=== PATIENT | female | born 2000 | race Caucasian/White ===

== ENCOUNTER 2024-05-27 19:07 | Emergency (ER) | payer MEDICAID, SELFPAY ==
[2024-05-27 19:33] VITALS: BP 122/86; PULSE 78; RESP 18; TEMP 36.7; O2SAT 96
--- NOTE | 2024-05-27 20:36 | EDNOTE_ITS ---
Upper Extremity Injury RME/HPI General Chief Complaint: Hand/Wrist Problems Stated Complaint: RIGHT HAND LAC Time Seen by Provider: 05/27/24 20:05 Arrival date/time: 05/27/24 19:07 RME / HPI RME / HPI narrative: 23-year-old female patient came in for evaluation regarding hand laceration, palmar aspect, after patient smashed the coffee cup due to anger. Patient sustained 4 cm gaping laceration to the hand, thenar aspect, severity moderate. Patient is able to bend and extend the fingers without any limitation, denies any numbness or paresthesias to the fingers and hand. Related Data Previous Rx's ?Medication ?Instructions ?Recorded cephalexin 500 mg capsule 500 mg PO TID 7 days #21 caps 05/27/24 ibuprofen 800 mg tablet 800 mg PO TID PRN pain #20 tabs 05/27/24 Review of Systems Review of Systems Narrative Review of Systems: Review of system reviewed and within normal limits except mentioned in HPI ED Exam Narrative Physical exam: VITAL SIGNS: Reviewed. GENERAL APPEARANCE: Alert and interactive, follows commands, no acute distress, HEAD AND FACE: Non-traumatic. ENT: PERRL, pink conjunctivitis, eyelid no trauma, Mucous membrane moist. NECK: Supple, nontender, no nuchal rigidity. RECTAL: Deferred. GENITAL: Deferred. NEUROLOGICAL: Gross motor function intact sensory function intact, Appropriate for age. MUSCULOSKELETAL: low back nontender, full range of motion. EXTREMITIES: + 4 cm gaping laceration, right hand, palmar aspect, full range of motion. Of the fingers and wrist, sensation intact all fingers and none SKIN: Color pink, dry, no rash, no lacerations, no abrasions, no contusions. LYMPHATICS: Deferred. Course Quality Measures none Orders Category Date Time Status Ibuprofen Tab [Motrin Tab] Med 05/27/24 20:35 Once 800 mg PO X1 ONE Tet,Diphth,Pertuss(Acell)-Tdap [Boostrix Vacc] Med 05/27/24 20:35 Once 0.5 ml IMI .ONCE ONE cephALEXin [Keflex] Med 05/27/24 20:35 Once 500 mg PO X1 ONE Vital Signs Vital signs: Vital Signs Temperature 98.0 F 05/27/24 19:33 Pulse Rate 78 05/27/24 19:33 Respiratory Rate 18 05/27/24 19:33 Blood Pressure 122/86 H 05/27/24 19:33 Pulse Oximetry (%) 96 05/27/24 19:33 Oxygen Delivery Method Room Air 05/27/24 19:33 Procedures -ED Laceration Laceration 1: Site: hand Side (If applicable): right Size (cm): 4 Description: flap Depth: simple, single layer Local Anesthetic: lidocaine 1% Amount of anesthesia used (mL): 10 Pre-repair: wound explored, irrigated extensively and wound margins revised (All foreign body removed) Skin layer closed with: nylon Size (cm): 4-0 Number of sutures: 5 Technique: simple, interrupted Extremity Injury MDM Narrative MDM Narrative:: Repair and suturing was done by me see procedure notes. Patient received Boostrix, Keflex, Motrin wound clearance with NS, and careful removal of foreign body done by me. Patient data External records reviewed:: None Clinical information provided by:: patient and family Social determinants that could affect healthcare access:: none Patient has the following chronic illnesses:: None How is presenting disease/condition affected by chronic disease/condition?: no chronic disease Evaluation data The following diagnostics were reviewed and interpreted by me:: other (specify) (None) Lab and/or radiology exams considered but not ordered:: None Interpretation Summary: None Medications / Prescriptions Medications or Prescriptions considered but not ordered:: None Medication administrations:: Medication Administration History Discontinued Medications Cephalexin HCl (Cephalexin 250 Mg Capsule) 500 mg PO X1 ONE Stop: 05/27/24 20:36 Diphtheria/Tetanus/Acell Pertussis (Diphth,Pertuss(Acell),Tet Vac 0.5 Ml Vial) 0.5 ml IMi .ONCE ONE Stop: 05/27/24 20:36 Ibuprofen (Ibuprofen Tab 400 Mg Tablet) 800 mg PO X1 ONE Stop: 05/27/24 20:36 Keflex, Boostrix, and Motrin Consultations Consultation(s) initiated? (list below): No Diagnosis Upper Extremity Injury Differential Diagnosis: other (Hand laceration, skin avulsion, contusion) Most likely diagnosis given after review of the tests above:: Hand laceration Admission Indicated Admission indicated?: not indicated Explain why admission is indicated or not indicated:: Stable Admission Request Was there a request for admission?: No Disposition Plan Disposition Plan: Discharge Discharge Attestation Discharge Attestation: The patient and all family members were given an opportunity to ask questions and understood the discharge instructions. Discharge instructions specifically effects, indications for sooner follow up or return to the emergency department, and the expected course of current diagnosis. Patient condition: Stable Discharge Plan Plan Patient Disposition: HOME (Self Care) Disposition Comment: Stable Prescriptions/Referrals Prescriptions/Med Rec: New cephalexin 500 mg capsule 500 mg PO TID 7 Days Qty: 21 0RF ibuprofen 800 mg tablet 800 mg PO TID PRN (Reason: pain) Qty: 20 0RF Problem List Clinical Impression: Hand laceration Patient/Caregiver Discharge Instructions Discharge Activity: activity as tolerated Education Materials: ED Laceration, Hand: All Closures Additional Instructions: Thank you for the opportunity for serving you today. You are stable for discharged . You are advised to: Follow-up with your PCP in 1 to 2 days Return to ED for worsening of symptoms Increase oral fluids Take medication as prescribed Daily dressing Neosporin as needed Poor removal of sutures in 7 to 10 days Print Language: Telugu Stand Alone Forms: Gu[facility] Award Info., Patient Portal Info Letter SANIYA/ALVERTO Supervising Physician SANIYA/ALVERTO Supervising Physician: MD Kelly
[2024-05-27] MEDS: cephALEXin 250 MG CAPSULE 500 MG PO (20:46)
[2024-05-27] MEDS: IBUPROFEN TAB 400 MG TABLET 800 MG PO (20:47)
[2024-05-27] MEDS: DIPHTH,PERTUSS(ACELL),TET VAC 0.5 ML VIAL IMi (20:47)
== END 2024-05-27 20:55 | disposition home or self-care (01) ==
LOC: SERX 21:02
PROVIDERS: Emergency Provider Emergency Medicine
DX: S61.411A Laceration without foreign body of right hand, initial encounter (principal); W45.8XXA Other foreign body or object entering through skin, initial encounter
CPT/HCPCS: 12002; 90471; 90715; 99283; A9270